=== PATIENT | female | born 1980 | race Caucasian/White ===

== ENCOUNTER 2017-06-03 17:20 | Inpatient (IN) | payer OTHER ==
[2017-06-03] MEDS ORDERED: DINOPROSTONE 10 MG VAGINAL SUPPOSITORY VG ONE (17:30)
[2017-06-03 18:26] LABS: BASO % 0.6 % (0-2.0); EOS % 1.7 % (0-4.5); HEMATOCRIT 39.8 % (32.4-45.2); HEMOGLOBIN 13.3 GM/dL (10.7-15.3); LYMPH % 17.6 % (8-40); MCH 29.1 pg (25.7-33.7); MCHC 33.4 g/dl (32.0-36.0); MEAN PLT VOLUME 8.2 fl (7.5-11.1); MONO % 4.7 % (3.8-10.2); NEUT % 75.4 % (42.8-82.8); PLATELET COUNT 333 K/MM3 (134-434); RBC 4.57 M/mm3 (3.60-5.2); RDW 15.7 % (11.6-15.6); WHITE BLOOD COUNT 13.6 K/mm3 (4.0-10.0)
[2017-06-03 18:28] VITALS: BMI 35.8
[2017-06-03 18:45] LABS: INR 0.91 (0.82-1.09); PROTHROMBIN TIME (PATIENT) 10.3 SEC (9.98-11.88)
[2017-06-03 18:47] LABS: ACTIVATED PTT 27.9 SECONDS (26.9-34.4)
[2017-06-03] MEDS ORDERED: TUBERCULIN PPD 5 TU/0.1ML SYRINGE (IN PATIENT USE ONLY) ID ONE (19:00)
[2017-06-03 19:06] LABS: ANION GAP 9 (8-16); BLOOD UREA NITROGEN 7 mg/dL (7-18); CALCIUM 8.7 mg/dL (8.5-10.1); CHLORIDE 106 mmol/L (98-107); CO2 24 mmol/L (21-32); CREATININE 0.7 mg/dL (0.55-1.02); GLUCOSE,RANDOM 146 mg/dL (74-106); POTASSIUM 3.7 mmol/L (3.5-5.1); SODIUM 139 mmol/L (136-145)
--- NOTE | 2017-06-03 21:19 | HP ---
Past Medical History - Admission Chief Complaint: Postdates History of Present Illness: 36 yo , @ 40 weeks gestation, EDC 05/31/17, presents for induction of labor. She denies any contractions pain, vaginal bleeding nor ROM. History Source: Patient Limitations to Obtaining History: No Limitations - Past Medical History ...: 1 ...Para: 0 ...Term: 0 ...: 0 ...Spon : 0 ...Induced : 0 ...Multiple Gestation: 0 ...LMP: 08/27/16 ... Weeks Gestation by Dates: 40.0 ...EDC by Dates: 06/03/17 ...EDC by Sono: 05/31/17 - Past Surgical History Past Surgical History: Yes: None Hx Myomectomy: No Hx Transabdominal Cerclage: No - Smoking History Smoking history: Never smoked Have you smoked in the past 12 months: No - Alcohol/Substance Use Hx Alcohol Use: No History of Substance Use: reports: None - Social History Usual Living Arrangement: Yes: With Spouse History of Recent Travel: No Home Medications - Allergies Allergies/Adverse Reactions: Allergies Allergy/AdvReac Type Severity Reaction Status Date / Time No Known Allergies Allergy Verified 06/03/17 17:55 - Home Medications Home Medications: Ambulatory Orders Budesonide/Formeterol Fumarate [SYMBICORT 160/4.5mcg -] 1 puff IH PRN 06/03/17 Vit/Iron Fum/Folic AC [ Tablet] 1 tab PO DAILY 06/03/17 Family Disease History - Family Disease History Family History: Unremarkable Review of Systems - Review of Systems Constitutional: reports: No Symptoms Eyes: reports: No Symptoms HENT: reports: No Symptoms Neck: reports: No Symptoms Cardiovascular: reports: No Symptoms Respiratory: reports: No Symptoms Gastrointestinal: reports: No Symptoms Genitourinary: reports: No Symptoms Breasts: reports: No Symptoms Reported Musculoskeletal: reports: No Symptoms Integumentary: reports: No Symptoms Neurological: reports: No Symptoms Endocrine: reports: No Symptoms Hematology/Lymphatic: reports: No Symptoms Psychiatric: reports: No Symptoms Pain Intensity: 0 Physical Exam - Maternity Vital Signs: Vital Signs Temperature 98.4 F 06/03/17 19:00 Pulse Rate 82 06/03/17 20:00 Respiratory Rate 18 06/03/17 20:00 Blood Pressure 131/70 06/03/17 20:00 O2 Sat by Pulse Oximetry (%) Constitutional: Yes: Well Nourished Eyes: Yes: Conjunctiva Clear HENT: Yes: Atraumatic Neck: Yes: Supple Cardiovascular: Yes: Regular Rate and Rhythm Lungs: Clear to auscultation - Abdominal Exam/OB Number of Fetuses: Single Presentation: Vertex - Vaginal Exam/OB Dilatation (cm): closed - Physical Exam ...Motor Strength: WNL Psychiatric: Yes: Alert, Oriented - Labs Lab Results: CBC, BMP 06/03/17 18:10 06/03/17 18:10 Problem List - Problems (1) Post-dates Code(s): O48.0 - POST-TERM Qualifiers: Post-term type: 40-42 weeks gestation Qualified Code(s): O48.0 - Post-term Assessment/Plan Postdates Admit for Cervidil induction
[2017-06-04] MEDS ORDERED: DEXTROSE 5%-LACTATED RINGERS 500 ML IV ONE ×2 (04:05→05:05)
[2017-06-04] MEDS ORDERED: OXYTOCIN 30 UNITS in 0.9% NS 30 UNIT/500 ML INFUS.BAG IVPB SCH (08:30)
--- NOTE | 2017-06-04 08:30 | PN ---
Progress Note (short form) - Note Progress Note: Patient re-evaluated, no complaints. FHR : Reassuring [place] : + irregular contractions VE :/-3 A/P : Status post cervdil Start Pitocin in 30 mins Problem List - Problems (1) Post-dates Code(s): O48.0 - POST-TERM Qualifiers: Post-term type: 40-42 weeks gestation Qualified Code(s): O48.0 - Post-term
[2017-06-04] MEDS ORDERED: AMPICILLIN SODIUM 2 GM VIAL ONE (08:31)
[2017-06-04] MEDS ORDERED: AMPICILLIN - 2 GM in SODIUM CHLORIDE 100 ML IVPB ONE (08:50)
[2017-06-04] MEDS: AMPICILLIN - 1 GM in SODIUM CHLORIDE 100 ML IVPB SCH ×2 (12:56→17:05)
[2017-06-04] MEDS ORDERED: PROMETHAZINE HCL 25 MG/1 ML VIAL ONE ×2 (13:17→15:50)
[2017-06-04] MEDS ORDERED: BUTORPHANOL TARTRATE 1 MG/ML VIAL ONE ×4 (13:17→15:50)
[2017-06-04] MEDS: PROMETHAZINE HCL 25 MG/1 ML VIAL IVPUSH PRN ×2 (13:30→16:00)
[2017-06-04] MEDS: BUTORPHANOL TARTRATE 1 MG/ML VIAL IVPUSH PRN ×2 (13:30→16:00)
[2017-06-04] MEDS ORDERED: OXYTOCIN 20 UNITS in 0.9% NS 20 UNIT/1,000 ML INFUS.BAG IV ONE (18:45)
[2017-06-04] MEDS ORDERED: LIDOCAINE HCL 1% PRESERVATIVE FREE - 30ML VIAL ONE (18:45)
[2017-06-04] MEDS ORDERED: MEPERIDINE HCL CARPU-JECT 50 MG/1 ML DISP.SYRIN ONE (19:19)
[2017-06-04] MEDS ORDERED: MEPERIDINE HCL CARPU-JECT 50 MG/1 ML DISP.SYRIN IM ONE (19:20)
[2017-06-04] MEDS ORDERED: METHYLERGONOVINE MALEATE 0.2 MG/1 ML AMP IM PRN (19:54)
[2017-06-04] MEDS ORDERED: WITCH HAZEL 50% (TUCKS) 40 PAD/JAR PAD TP PRN (19:54)
[2017-06-04] MEDS ORDERED: BENZOCAINE 20% 57 GM BOTTLE TP PRN (19:54)
[2017-06-04] MEDS ORDERED: BISACODYL 10 MG SUPP.RECT RC PRN (19:54)
[2017-06-04] MEDS ORDERED: BENZOCAINE 28 GM HEMORRHOIDAL OINTMENT TP PRN (19:54)
--- NOTE | 2017-06-04 19:58 | PN ---
Delivery - Delivery Vaginal Delivery: Spontaneous Type of Anesthesia: Local Episiotomy/Laceration: 3rd degree EBL (cc): 300 Delivery, Single - Feeding Plan Initial Plan: Elected not to breastfeed exclusively throughout hospitalization Remarks - Remarks Remarks: Normal spontaneous vaginal delivery of a live infant boy over third degree laceration. Nose / Oropharynx suctioned @ perineum. Nuchal cord x 1 clamped and cut. Placenta expelled spontaneously intact. Laceration repaired with 2.0 Chromic and 2.0 Biosyn.
[2017-06-04] MEDS ORDERED: OXYTOCIN 20 UNITS in 0.9% NS 20 UNIT/1,000 ML INFUS.BAG IV SCH (20:00)
[2017-06-05] MEDS: AMPICILLIN - 1 GM in SODIUM CHLORIDE 100 ML IVPB SCH (00:33)
[2017-06-05 08:19] LABS: BASO % 0.5 % (0-2.0); EOS % 0.8 % (0-4.5); HEMATOCRIT 33.8 % (32.4-45.2); LYMPH % 12.1 % (8-40); MCH 28.9 pg (25.7-33.7); MCHC 32.6 g/dl (32.0-36.0); MEAN CELL VOLUME 88.6 fl (80-96); MEAN PLT VOLUME 8.2 fl (7.5-11.1); MONO % 6.3 % (3.8-10.2); NEUT % 80.3 % (42.8-82.8); PLATELET COUNT 305 K/MM3 (134-434); RBC 3.82 M/mm3 (3.60-5.2); RDW 16.1 % (11.6-15.6); WHITE BLOOD COUNT 19.1 K/mm3 (4.0-10.0)
[2017-06-05] MEDS: FERROUS SO4 325 MG TABLET (FP) PO SCH ×3 (08:19→18:15)
[2017-06-05] MEDS: PRENATAL VITAMINS W/ FOLIC ACID TABLET (FP) PO SCH (09:38)
--- NOTE | 2017-06-05 09:47 | PN ---
Post Progress Note - Subjective Subjective: 36 yo Para 1 status post vaginal delivery seen and evaluated. Doing well. Post Day: 1 Type of Delivery: Vital Signs: Vital Signs Temperature 99.2 F 06/05/17 05:00 Pulse Rate 88 06/05/17 05:00 Respiratory Rate 20 06/05/17 05:00 Blood Pressure 125/86 06/05/17 05:00 O2 Sat by Pulse Oximetry (%) 100 06/04/17 20:25 Breast Exam: Yes: Soft Uterus: Yes: Fundus Firm Abdomen/GI: Yes: Abdomen soft, Tolerating PO Lochia: Yes: Rubra Lochia, amount: Moderate Extremities: Yes: Calves non-tender Perineum: Yes: Laceration (+ swollen perineum) Activity: Other (She's lying in bed) - Labs Labs: CBC WBC 19.1 K/mm3 (4.0-10.0) H D 06/05/17 07:28 RBC 3.82 M/mm3 (3.60-5.2) 06/05/17 07:28 Hgb 11.0 GM/dL (10.7-15.3) D 06/05/17 07:28 Hct 33.8 % (32.4-45.2) D 06/05/17 07:28 MCV 88.6 fl (80-96) 06/05/17 07:28 MCH 28.9 pg (25.7-33.7) 06/05/17 07:28 MCHC 32.6 g/dl (32.0-36.0) 06/05/17 07:28 RDW 16.1 % (11.6-15.6) H 06/05/17 07:28 Plt Count 305 K/MM3 (134-434) 06/05/17 07:28 MPV 8.2 fl (7.5-11.1) 06/05/17 07:28 Neutrophils % 80.3 % (42.8-82.8) 06/05/17 07:28 Lymphocytes % 12.1 % (8-40) D 06/05/17 07:28 Monocytes % 6.3 % (3.8-10.2) 06/05/17 07:28 Eosinophils % 0.8 % (0-4.5) 06/05/17 07:28 Basophils % 0.5 % (0-2.0) 06/05/17 07:28 Problem List - Problems (1) Post-dates Code(s): O48.0 - POST-TERM Qualifiers: Post-term type: 40-42 weeks gestation Qualified Code(s): O48.0 - Post-term Assessment/Plan Status post Stable Continue care
[2017-06-05] MEDS: ACETAMINOPHEN 325 MG TABLET (FP) PO PRN (12:40)
[2017-06-05] MEDS: IBUPROFEN 600 MG TABLET (FP) PO PRN (12:41)
[2017-06-05] MEDS ORDERED: SENNOSIDES/DOCUSATE COMBO (SENNA PLUS) TABLET (UD) PO PRN (22:00)
[2017-06-06 08:07] VITALS: BP 120/72; PULSE 70; TEMP 98.6
[2017-06-06] MEDS: FERROUS SO4 325 MG TABLET (FP) PO SCH (08:36)
[2017-06-06] MEDS: ACETAMINOPHEN 325 MG TABLET (FP) PO PRN (08:36)
[2017-06-06] MEDS: IBUPROFEN 600 MG TABLET (FP) PO PRN (08:37)
[2017-06-06] MEDS: PRENATAL VITAMINS W/ FOLIC ACID TABLET (FP) PO SCH (09:03)
--- NOTE | 2017-06-06 10:41 | DS ---
Physical Exam-[facility] Vital Signs: Vital Signs Temperature 98.6 F 06/06/17 08:05 Pulse Rate 70 06/06/17 08:05 Respiratory Rate 20 06/06/17 08:05 Blood Pressure 120/72 06/06/17 08:05 O2 Sat by Pulse Oximetry (%) 100 06/04/17 20:25 Constitutional: Yes: Well Nourished Eyes: Yes: Conjunctiva Clear HENT: Yes: Atraumatic Neck: Yes: Supple Cardiovascular: Yes: Regular Rate and Rhythm Respiratory: Yes: Regular Gastrointestinal: Yes: Normal Bowel Sounds External Genitalia: Yes: Tender Uterus: Yes: Firm ....Post : Yes: Uterus firm, Moderate lochia serosa Breast(s): Yes: WNL Musculoskeletal: Yes: WNL Extremities: Yes: WNL Neurological: Yes: Alert, Oriented ...Motor Strength: WNL Psychiatric: Yes: Alert, Oriented Labs: CBC, BMP 06/05/17 07:28 06/03/17 18:10 Delivery - Delivery Vaginal Delivery: Spontaneous Type of Anesthesia: Local Episiotomy/Laceration: 3rd degree EBL (cc): 300 Delivery, Single - Stages of Labor Date 1st Stage Initiatied: 06/04/17 Time 1st Stage Initiated: 13:00 Date 2nd Stage Initiated: 06/04/17 Time 2nd Stage Initiated: 18:55 Date of Delivery: 06/04/17 Time of Delivery: 19:09 Time Placenta Delivered: 19:12 - Condition of Infant [employer] In[employer] Present: No Gender: Male Weight: 7 lb 4 oz Position: Right, OA Total Hours ROM (Hrs/Mins): 32min - 1 Minute Total Score: 9 5 Minutes Total Score: 9 - [place] Feeding Plan Initial Plan: Elected not to breastfeed exclusively throughout hospitalization Discharge Summary Reason For Visit: CERVICAL INDUCTION Current Active Problems Post-dates (Acute) Procedures: Principal: Normal spontaneous vaginal delivery Hospital Course: Routine care Condition: Good - Instructions Diet, Activity, Other Instructions: return to office in 4-6 weeks for check. call for appointment. Referrals: Sofiya Mendez MD [Staff Physician] - - Home Medications Comprehensive Discharge Medication List: Ambulatory Orders Budesonide/Formeterol Fumarate [SYMBICORT 160/4.5mcg -] 1 puff IH PRN 06/03/17 Vit/Iron Fum/Folic AC [ Tablet] 1 tab PO DAILY 06/03/17
== END 2017-06-06 12:00 | disposition home or self-care (01) | DRG 542 ==
LOC: JLDR 17:20 → J3W 06-04 21:00
PROVIDERS: ADMIT Obstetrics & Gynecology; ATTEND Obstetrics & Gynecology
PROC: 10E0XZZ Delivery of Products of Conception, External Approach (ICD-10-PCS; principal; 2017-06-04)
PROC: 0W8NXZZ Division of Female Perineum, External Approach (ICD-10-PCS; 2017-06-04)
PROC: 0DQR0ZZ Repair Anal Sphincter, Open Approach (ICD-10-PCS; 2017-06-04)
DX: O70.20 Third degree perineal laceration during delivery, unspecified (principal); O48.0 Post-term pregnancy; Z3A.40 40 weeks gestation of pregnancy; Z37.0 Single live birth
CPT/HCPCS: 36415; 59409; 80048; 85025; 85610; 85730; 86593; 86850; 86900; 86901